=== PATIENT | male | born 1960 | race Caucasian/White ===

== ENCOUNTER → 2016-04-11 | Outpatient (REF) ==
--- NOTE | 2016-04-11 14:51 | REP ---
Clinical: Pain and disability. Technique: AP, lateral, bilateral oblique views of the left hand. Findings: There appears to be a small chronic corner fracture and arthritic change involving the first digit distal phalanx at the interphalangeal joint. The osseous structures and joint spaces are otherwise relatively normal for age. No further overt osteoarthritic degenerative changes. Impression: Possible old corner fracture at the first interphalangeal joint with associated degenerative change. Remainder of examination appears relatively normal for age. Signed by Harsh Segura MD 04/11/2016 02:42 P
--- NOTE | 2016-04-11 14:58 | REP ---
AP LATERAL CERVICAL SPINE, THREE VIEWS: HISTORY: Degenerative disc disease. The patient is status post C4 to C6 anterior spinal fusion and corpectomy. A fixation plate and metal cage are present. There is no acute fracture or subluxation. The C3-4 and C6-7 intervertebral discs are decreased in height consistent with disc degeneration. Osteophytes are present on C3, C6, and C7. There is no subluxation. There is loss of the normal lordotic curve. IMPRESSION: The patient is status post C4 to C6 anterior spinal fusion. There is no subluxation. Signed by Micky Hernández MD 04/11/2016 03:02 P
== END ==
LOC: M SMT 13:22
PROVIDERS: ATTEND Internal Medicine
DX: Z02.1 Encounter for pre-employment examination (principal)

== ENCOUNTER → 2016-05-18 | Outpatient (REF) ==
--- NOTE | 2016-05-18 13:42 | REP ---
Click nickel: Pain. Technique: Neutral and frog lateral views of the left hip. Findings: Mild/moderate arthritic degenerative changes include increased sclerosis and irregularity to the acetabulum with marginal spurring as well as minimal joint space narrowing. No acute fracture or dislocation. Impression: Mild to moderate arthritic degenerative changes. Signed by Harsh Segura MD 05/18/2016 01:33 P
== END ==
LOC: M SMT 13:03
PROVIDERS: ATTEND Internal Medicine
DX: Z02.1 Encounter for pre-employment examination (principal)